=== PATIENT | male | born 1975 | race Caucasian/White ===

== ENCOUNTER 2024-01-19 00:11 | Day surgery (SDC) | payer BC, SELFPAY ==
[2023-12-09 15:44] VITALS: BMI 35.7
[2024-01-04 14:08] VITALS: BMI 35.9
--- NOTE | 2024-01-04 14:11 | SUR.PREOP ---
Spoke with patient and confirmed the new date and time of his procedure with Dr. Bedolla. It was also confirmed that there has been no updates to medication list or medical history since we spoke with him last.
[2024-01-19 11:46] VITALS: BP 159/91; PULSE 64; RESP 18; TEMP 36.4; O2SAT 100
[2024-01-19] MEDS: LACTATED RINGERS 1,000 ML 150 ML IV CONT (11:57)
--- NOTE | 2024-01-19 11:57 | WPDANESEPPF ---
Anes - Initial Pre Proc Eval Procedure: Operation Date: 01/19/24 13:00 Proposed Procedures p Screening Colonoscopy - Sg Bedolla DO Date/Time: 01/19/24 11:57 Surgeon: Sg Bedolla DO Pre Op Diagnosis: Neoplasm screening Patient Data Age: 48 Gender: M Height: 1.78 m Weight: 120.6 kg Last Vital Signs Temp 36.4 C L 01/19/24 11:46 Pulse 64 01/19/24 11:46 Resp 18 01/19/24 11:46 BP 159/91 H 01/19/24 11:46 Pulse Ox 100 01/19/24 11:46 O2 Del Method Room Air 01/19/24 11:46 Allergies Allergy/AdvReac Type Severity Reaction Status Date / Time No Known Allergies Allergy Verified 01/19/24 11:45 Home Medications ?Medication ?Instructions ?Recorded ?Confirmed ?Type No Home Medications 12/09/23 01/04/24 History Patient hx anesthesia problems: none Family hx anesthesia problems: none Results Review: All pre-operative results and documents have been reviewed as part of the pre-operative evaluation. [facility] Past Medical History Medical History Erectile dysfunction Borderline hypertension Depression Foamy urine Arthritis Surgical History Surgical History H/O vasectomy Family History Family History Grandparent Diabetes mellitus Mother Depression Other Cancer Carcinoma of colon Family history of malignant neoplasm of esophagus Social History Social History Smoking status: Never smoker Tobacco type: smokeless tobacco Smokeless tobacco user: chewing tobacco Second hand tobacco smoke exposure: No Smoking end date: 02/10/16 Alcohol intake: current Drinks per week: 6 Substance use: never Substance use type: does not use Lack of Transportation: No Lack of Food: Never True Current Housing: Decline to Answer Concerned About Future Housing: Decline to Answer Difficulty Paying Gas/Electric Bills: Decline to Answer Difficulty Paying for Meds: Decline to Answer Currently Unemployed: Decline to Answer Education: Decline to Answer Difficulty w/ Childcare or Family Care: Decline to Answer Living arrangements: with family Occupation/Education: occupation Gender identity (if verbalized by the patient): Male Spiritual care concerns: No Agree to blood products: Yes Anes - Eval Final PreProcedure Day of Procedure 01/19/24 11:57 Patient weight: obese Heart: regular rate and rhythm Lungs: clear to auscultation Airway: Mallampati scale class II Neurological: alert and oriented Last oral intake: >/= 8 hours ASA classification: III Emergent: no Anesthetic plan: proceed Anesthesia type and monitoring: general GIVS and standard monitoring Results Review: All pre-operative results and documents have been reviewed as part of the pre-operative evaluation. Informed Consent: The patient's anesthetic plan and its attendant risks and benefits were discussed with the patient/family/POA. Questions were solicited and answers provided to the satisfaction of the patient/family/POA.
--- NOTE | 2024-01-19 12:03 | PM.IMHP ---
H&P: HPI History of Present Illness Date/Time: 01/19/24 12:03 Chief Complaint: screening for colorectal cancer Narrative: this is a 48 year who presents for colonoscopy. He has never had a colonoscopy before. He had an aunt who had colon cancer. He has no first-degree relatives with colon cancer. He denies any hematochezia or melena. Review of Systems Review of Systems: All systems reviewed & are unremarkable except as noted in HPI and below Constitutional: Constitutional: Denies chills, Denies fever(s), Denies headache(s) and Denies weight loss Eyes: Eyes: Denies change in vision ENT: Denies dizziness, Denies headache(s), Denies neck mass and Denies throat swelling Cardiovascular: Cardiovascular: Denies chest pain, Denies lightheadedness and Denies dyspnea Respiratory: Respiratory: Denies cough, Denies dyspnea and Denies wheezing Gastrointestinal: Gastrointestinal: Denies abdominal pain, Denies change in bowel habits, Denies nausea and Denies vomiting Genitourinary: Genitourinary: Denies hematuria and Denies dysuria Musculoskeletal: Musculoskeletal: Reports as per HPI Integumentary/Breasts: Skin/Breast: Reports as per HPI Neurologic: Denies dizziness and Denies headache(s) Allergic/Immunologic: Allergic/Immunologic: Denies throat swelling and Denies wheezing PMFSH Past Medical History Medical History Erectile dysfunction Borderline hypertension Depression Foamy urine Arthritis Surgical History Surgical History H/O vasectomy Family History Family History Grandparent Diabetes mellitus Mother Depression Other Cancer Carcinoma of colon Family history of malignant neoplasm of esophagus Social History Social History Smoking status: Never smoker Tobacco type: smokeless tobacco Smokeless tobacco user: chewing tobacco Second hand tobacco smoke exposure: No Smoking end date: 02/10/16 Alcohol intake: current Drinks per week: 6 Substance use: never Substance use type: does not use Lack of Transportation: No Lack of Food: Never True Current Housing: Decline to Answer Concerned About Future Housing: Decline to Answer Difficulty Paying Gas/Electric Bills: Decline to Answer Difficulty Paying for Meds: Decline to Answer Currently Unemployed: Decline to Answer Education: Decline to Answer Difficulty w/ Childcare or Family Care: Decline to Answer Living arrangements: with family Occupation/Education: occupation Gender identity (if verbalized by the patient): Male Spiritual care concerns: No Agree to blood products: Yes Meds Home Medications and Allergies Home Medications ?Medication ?Instructions ?Recorded ?Confirmed ?Type No Home Medications 12/09/23 01/04/24 History Allergies Allergy/AdvReac Type Severity Reaction Status Date / Time No Known Allergies Allergy Verified 01/19/24 11:45 Vital Signs Vital Signs - 24 hr 01/19/24 11:46 Temperature 97.5 F L Pulse Rate 64 Respiratory Rate 18 Blood Pressure 159/91 H Pulse Oximetry 100 Oxygen Delivery Room Air Exam Const: General: no acute distress and alert Orientation/consciousness: patient oriented x3 HENMT: Head: normocephalic and atraumatic Ears: hearing grossly normal bilaterally Face/Nose/Sinus: Normal nares present Mouth: Yes Normal oral and palatal mucosa present Eyes: Periorbital: periorbital findings normal Sclera: sclerae normal EOM: EOMs intact bilaterally Neck: Neck: normal visual inspection, no lymphadenopathy and trachea midline Chest: Chest palpation & inspection: normal inspection of the chest Resp: Effort & Inspection: normal respiratory effort Auscultation: clear to auscultation bilaterally Cardio: Jugular venous distension: no JVD Rate: regular rate Rhythm: regular rhythm Heart sounds: S1 normal heart sound present and S2 normal heart sound present Peripheral pulses: Peripheral pulses 2+ throughout GI: Inspection: normal to inspection GI Palp: Yes Soft to palpation, No Tenderness to palpation present (GI), No Guarding due to palpation present (GI) and No Rebound tenderness present Percussion: Yes normal to percussion Auscultation: normal bowel sounds : General: Yes no CVA tenderness Back/Spine/Pelvis: Back: no CVA tenderness Neuro: General: patient oriented x3, no focal motor deficits and CN's II-XI intact bilaterally Cognition (Neuro): normal cognition Speech: normal speech Motor exam (neuro): 5/5 motor strength present throughout Extrem: General: capillary refill normal and no clubbing, cyanosis or edema Assessment and Plan Assessment and plan (1) Screening for colorectal cancer: Code(s): Z12.11 - Encounter for screening for malignant neoplasm of colon; Z12.12 - Encounter for screening for malignant neoplasm of rectum Status: Acute Assessment and Plan: I have recommended colonoscopy. I have discussed the procedure, risks, benefits, and alternatives. Questions were answered. Patient is agreeable to proceed.
[2024-01-19 12:35] VITALS: BP 125/71; PULSE 79; RESP 18; O2SAT 98
[2024-01-19 12:45] VITALS: BP 131/91; PULSE 61; RESP 15; O2SAT 99
[2024-01-19 12:55] VITALS: BP 131/91; PULSE 60; RESP 14; O2SAT 99
== END 2024-01-19 13:02 | disposition home or self-care (01) ==
PROVIDERS: PCP Family Medicine; Visit Provider Surgery
PROC: 0DJD8ZZ Inspection of Lower Intestinal Tract, Via Natural or Artificial Opening Endoscopic (ICD-10-PCS; CPT 45378; principal; 2024-01-19 13:00)
DX: Z12.11 Encounter for screening for malignant neoplasm of colon (principal); D12.5 Benign neoplasm of sigmoid colon; N52.9 Male erectile dysfunction, unspecified; I10 Essential (primary) hypertension; F32.A Depression, unspecified; M19.90 Unspecified osteoarthritis, unspecified site; F17.220 Nicotine dependence, chewing tobacco, uncomplicated; E66.9 Obesity, unspecified; Z68.38 Body mass index [BMI] 38.0-38.9, adult; Z98.890 Other specified postprocedural states; Z80.0 Family history of malignant neoplasm of digestive organs
CPT/HCPCS: 45385; 88305; J2003; J2704; J7120